=== PATIENT | female | born 1945 | race Caucasian/White ===

== ENCOUNTER → 2018-07-25 08:09 | Outpatient (CLI) | payer MEDICARE, SELFPAY ==
--- NOTE | 2018-07-25 08:12 | DI.MRI.S_ITS ---
PROCEDURE: MR CERVICAL SPINE WO CON INDICATIONS: Neck pain TECHNIQUE: Noncontrast sagittal T1 spin echo and T2 fast spin echo, sagittal STIR, foraminal oblique sagittal T2 fast spin echo, and axial gradient echo or T2 fast spin echo through the cervical spine. COMPARISON: None. FINDINGS: Image quality: Excellent. Alignment and Curvature: There is straightening of normal cervical lordosis. No spondylolisthesis is seen. Bone Marrow: There is no compression fracture. Vertebral body heights are preserved. Edema involving the inferior endplate of T1 and superior endplate of T2 is seen with significantly decreased intervertebral disc space at T1-2 level. Desiccation signals and degenerative endplate changes also noted throughout cervical spine more prominent at C5-6 and C6-7 levels. Spinal Cord: Visualized spinal cord has normal size and signal. No cerebellar tonsillar herniation. Paraspinous Soft Tissues: No paravertebral masses. Prevertebral soft tissues are normal in thickness. C2-C3: Normal appearance. C3-C4: Mild diffuse disc bulge is seen with mild central canal stenosis and left-sided neural foramina narrowing. C4-C5: There is a right paracentral disc herniation extending to right neural recess causing mild central canal stenosis and mild to moderate right-sided neuroforaminal narrowing. C5-C6: Broad-based, more right sided disc bulge is seen with mild to moderate central canal stenosis and right-sided neuroforaminal narrowing. C6-C7: There is broad-based disc bulge with mild central canal stenosis and mild bilateral neuroforaminal narrowing. C7-T1: Mild diffuse disc bulge is seen with no significant central canal stenosis or neuroforaminal narrowing. IMPRESSION: 1. Degenerative disc disease throughout cervical spine and visualized upper thoracic spine. Degenerative disc bulge at C3-4 through C7-T1 levels causing mild to moderate central canal stenosis and bilateral neuroforaminal narrowing as described above. 2. No acute compression fracture or traumatic spondylolisthesis. No abnormal cervical spinal cord signal. Dictated by: David Poe M.D. on 07/25/2018 at 10:27 Approved by: David Poe M.D. on 07/25/2018 at 10:37
--- NOTE | 2018-07-25 08:12 | DI.MRI.S_ITS ---
PROCEDURE: MR LUMBAR SPINE WO CON INDICATIONS: LOW BACK PAIN TECHNIQUE: Noncontrast sagittal T1 spin echo and T2 fast echo, sagittal STIR, axial T1 and T2 fast spin echo through the lumbar spine. In cases with scoliosis, additional coronal T2 fast spin echo may be performed. COMPARISON: None. FINDINGS: Image quality: Excellent. Alignment and Curvature: There is trace anterolisthesis of L2 on L3, L3 on L4, L4 on L5, L5 on S1. Bone Marrow: Marrow is of normal overall signal. Mild Schmorl's node is present along the superior endplate of L2 with mild adjacent reactive marrow change and a second focus with slightly increased marrow edema along the inferior endplate of T12. Degenerative reactive endplate changes are present at S1-S2. No acute vertebral body compression fractures. Spinal Cord: Conus medullaris terminates at the L2 level. Visualized cord demonstrates normal signal and size. Paraspinous Soft Tissues: No paravertebral masses. Discs: Mild desiccation is present throughout the lumbar spine, moderate at T12-L1. L1-L2: Mild disc bulge with minimal effacement of the spinal canal secondary to facet hypertrophy. Mild to moderate right and minimal left foraminal narrowing. L2-L3: Mild disc bulge with mild spinal stenosis. Mild bilateral foraminal narrowing, left greater than right the facet and ligamentum flavum hypertrophy. Minimal epidural lipomatosis. L3-L4: Mild disc bulge with moderate to severe spinal stenosis and an overall appearance of canal flattening. Moderate bilateral foraminal narrowing, right greater than left with facet and ligamentum flavum hypertrophy. Mild epidural lipomatosis. L4-L5: Mild disc post with mild spinal stenosis. Moderate left and mild to moderate right foraminal narrowing with facet and ligament flavum hypertrophy. Minimal epidural lipomatosis. L5-S1: Mild disc bulge without spinal stenosis. Minimal to mild left and minimal right foraminal narrowing with facet and ligamentum flavum hypertrophy. IMPRESSION: 1. Multilevel disc bulges. 2. Multilevel spinal stenosis most severe at L3-4 secondary to disc bulge with contributing effect of facet/ligamentum flavum arthropathy. Minimal to mild epidural lipomatosis is also noted. 3. Multilevel foraminal narrowing most prominent at L3-4 and L4-5 secondary to facet arthropathy. Dictated by: Lynne Gonzalez M.D. on 07/25/2018 at 10:30 Approved by: Lynne Gonzalez M.D. on 07/25/2018 at 11:02
--- NOTE | 2018-07-25 08:12 | DI.MRI.S_ITS ---
PROCEDURE: MR THORACIC SPINE WO CON INDICATIONS: Upper back pain TECHNIQUE: Noncontrast sagittal T1 spine echo and T2 fast spin echo, sagittal STIR, axial T1 and T2 fast spin echo through the thoracic spine. COMPARISON: [facility], MR, MR LUMBAR SPINE WO CON, 07/25/2018, 9:09. [facility], MR, MR CERVICAL SPINE WO CON, 07/25/2018, 8:28. Formerly [facility], CR, XR CERVICAL SPINE 2 OR 3 VIEWS, 07/24/2017, 14:54. [facility], CR, XR LUMBAR SPINE 2 OR 3 VIEWS, 04/12/2018, 11:03. FINDINGS: Image quality: Excellent. Alignment and Curvature: There is normal bony alignment. Bone Marrow: There is marrow edema in T1 and T2 vertebral bodies involving the inferior aspect of T1 and superior aspect of T2. There is no loss of vertebral body height in T1 or T2 vertebral bodies. Mild wedge deformity of L1 is noted. No acute vertebral body compression fractures. Spinal Cord: Visualized spinal cord is normal in size and signal. Paraspinous Soft Tissues: No paravertebral masses. Miscellaneous: Multilevel degenerative disc disease is present with disc space narrowing and posterior disc bulge involving C7-T1, T1-T2, T2-T3, T3-T4, T6-T7, T7-T8, T8-T9, T9-T10, T10-T11, T11-T12 and T12-L1. There is On axial images, there is mild central canal stenosis at T10-T11 and T12-L1. Neural foramina appear patent. IMPRESSION: 1. There is prominent marrow edema in T1 and T2 vertebral bodies without loss of vertebral body height, which involves the inferior endplate of T1 and superior endplate of T2, suggesting a discogenic process (Modic type 1). Less likely the finding could be related to trauma or impending compression fracture. 2. Mild loss of vertebral body height of L1, neck with chronic compression fracture. 3. Multilevel degenerative disc disease as described. 4. Mild central canal stenosis at T10-T11 and T12-L1. 5. No foraminal stenosis. Dictated by: Elma Richardson M.D. on 07/25/2018 at 10:55 Approved by: Elma Richardson M.D. on 07/25/2018 at 20:58
== END ==
PROVIDERS: PCP Physician Assistant Medical; Visit Provider Physical Medicine & Rehabilitation
DX: M50.31 Other cervical disc degeneration, high cervical region (principal); M48.02 Spinal stenosis, cervical region; M51.26 Other intervertebral disc displacement, lumbar region; M51.27 Other intervertebral disc displacement, lumbosacral region; M48.061 Spinal stenosis, lumbar region without neurogenic claudication; M48.07 Spinal stenosis, lumbosacral region; M51.34 Other intervertebral disc degeneration, thoracic region; M48.04 Spinal stenosis, thoracic region
CPT/HCPCS: 72141; 72146; 72148

== ENCOUNTER 2018-08-13 09:04 | Outpatient (CLI) | payer MEDICARE, SELFPAY ==
--- NOTE | 2018-08-13 09:05 | DI.RAD.S_ITS ---
PROCEDURE: PAIN C/T INTERLAMINAR INJECT INDICATIONS: SPINAL STENOSIS FINDINGS: Fluoroscopic spot filming was performed to verify placement of cervical spine at C6-C7 level. Appropriate location(s) of the needle tip(s) was confirmed by injection of iodinated contrast. IMPRESSION: Fluoroscopy for pain management. Dictated by: Elma Richardson M.D. on 08/13/2018 at 12:06 Approved by: Elma Richardson M.D. on 08/13/2018 at 12:07
[2018-08-13 09:11] VITALS: BP 160/72; PULSE 83; RESP 20; TEMP 36.4; O2SAT 96
--- NOTE | 2018-08-13 09:36 | PM.PROC.1 ---
Procedures Date/Time Date of procedure: 08/13/18 Time of procedure: 09:37 General Procedure description: PREOP DIAGNOSIS 1. CERVICAL STENOSIS, 2. CERVICAL HNP WITH UPPER EXTREMITY RADICULAR FEATURES, POST OP DIAGNOSIS 1. CERVICAL STENOSIS, 2. CERVICAL HNP WITH UPPER EXTREMITY RADICULAR FEATURES, PROCEDURES 1. FLUORSCOPICALLY GUIDED CONTRAST CONTROLLED INTERLAMINAR EPIDURAL STEROID INJECTION - C6/7 TL SHERRON PHYSICIAN: Weston Tavarez DO INDICATIONS [place] is referred by KIRK Linares for treatment of Cervical HNP with Upper Extremity Paresthesias. FINDINGS Cervical Stenosis due to disc deterioration and nerve root irritation and nerve root irritation DESCRIPTION OF PROCEDURE Fluoroscopically guided, contrast-controlled C6/7 translaminar epidural steroid injection with conscious sedation. Following denial of allergy and review of potential side effects and complications, including, but not necessarily limited to, infection, allergic reaction, local tissue breakdown, temporary as well as permanent nerve injury, stroke, paralysis, and possible , the patient indicated that patient understood and agreed to proceed. An informed consent document was signed by the patient, witnessed by a nurse, and placed in the patient's chart. Additionally, other treatment options including modalities, medications, and physical therapy were reviewed with the patient. After review of previous anaesthesic history and IV conscious sedation the patient was deemed safe to proceed with todays procedure with IV conscious sedation as ASA class II designation. Safety time-out was performed to confirm patient ID, procedure to be performed and site of procedure. IV sedation was accomplished with a combination of 2mg of Versed administered by the RN after DO order, titrated to patient comfort during the course of the procedure while the patient remained responsive to all verbal commands. In the prone position, following sterile prep and drape of the cervical region, the C6/7 translaminar space was identified fluoroscopically. The skin was anesthetized via a 25-gauge 1.5-inch needle with 1% lidocaine solution. At this point, a 25-gauge, 2.5-inch short bevel spinal needle was atraumatically introduced and advanced under fluoroscopic guidance into epidural space at the C6/7 translaminar space. Depth was confirmed on lateral view. Radiological data, including multiple fluoroscopic views of the cervical spine, reveal a spinal needle at the C6/7 translaminar space. Lateral views then show placement of the needle in the epidural space. Subsequent views show contrast material flowing superiorly and inferiorly in the epidural space. DSA fluoroscopy with live contrast injection, once again, confirmed no vascular or intrathecal uptake. At this point, using loss of resistance technique with saline and air, the epidural space was entered. Following negative aspiration, injection of approximately 1.5 cc of Isovue-200 with live fluoroscopy in the AP view confirmed epidural flow in the epidural space without vascular or intrathecal uptake observed. Subsequently, a test dose of 1 cc of 1% lidocaine solution was injected and patient was observed for two minutes without signs or symptoms of complications, including abdominal pain, shortness of breath, bilateral upper or lower extremity weakness, nausea and vomiting, prior to steroid injection. At this point, 3 cc or 30 mg of dexamethasone was then injected without incident. The patient tolerated the procedure well without signs or symptoms of complications prior to being transferred to the recovery area for further monitoring, The patient was then transferred to the recovery area where they were observed for an appropriate period of time after the injection. The patient reported a VAS score of 6 prior to the procedure and a post-procedure VAS of 0. Total Fluoroscopy Time: 37.0 seconds Total Conscious Time: 24min POST OP INSTRUCTIONS The patient was provided a Pain Log to continue to record their response to the target-specific procedure prior to follow-up visit with the referring provider. Additionally, specific post-injection care instructions and a contact number to our office were provided if concerns arise regarding possible complications associated with the procedure are suspected. Weston Tavarez, Complications: none
[2018-08-13 09:45] VITALS: BP 156/85; PULSE 88; O2SAT 100
[2018-08-13] MEDS: MIDAZOLAM 5 MG/5 ML VIAL IV (09:45)
[2018-08-13 09:50] VITALS: BP 152/86; PULSE 89; RESP 15; O2SAT 100
[2018-08-13 09:55] VITALS: BP 165/65; PULSE 87; RESP 16; O2SAT 98
--- NOTE | 2018-08-13 10:11 | PC.NURSE ---
pt tolerated procedure well. Able to get off table with standby assist, pt awake and alert, transferred to pre procedure room for continued monitoring by Gabriela GUTIERREZ.
[2018-08-13 10:12] VITALS: BP 147/77; PULSE 82; RESP 18; O2SAT 96
[2018-08-13] MEDS: DEXAMETHASONE 10 MG/ML VIAL 30 MG INJ (10:13)
[2018-08-13] MEDS: LIDOCAINE 1% 20 ML INJ 5 ML INJ (10:13)
[2018-08-13] MEDS: IOPAMIDOL 15 ML VIAL 3 ML INJ (10:13)
--- NOTE | 2018-08-13 10:13 | PC.NURSE ---
ACCEPTED CARE OF PT IN POST PROC AREA IN STABLE CONDITION
[2018-08-13 10:17] VITALS: BP 134/82; PULSE 85; RESP 16; O2SAT 97
--- NOTE | 2018-08-14 15:57 | PC.NURSE ---
FOLLOW UP CALL MADE, LEFT MESSAGE WITH CLINIC NUMBER FOR ANY QUESTIONS/CONCERNS.
== END 2018-08-13 10:29 | disposition home or self-care (01) ==
LOC: RAD 09:05
PROVIDERS: PCP Physician Assistant Medical; Visit Provider Physical Medicine & Rehabilitation
DX: M50.123 Cervical disc disorder at C6-C7 level with radiculopathy (principal); M48.02 Spinal stenosis, cervical region
CPT/HCPCS: 62321; 99152; J1100; J2250

== ENCOUNTER → 2019-05-01 13:38 | Outpatient (CLI) | payer MEDICARE, SELFPAY | PROVIDERS: PCP Physician Assistant Medical; Visit Provider Physical Medicine & Rehabilitation | DX: M48.02 Spinal stenosis, cervical region (principal); M47.814 Spondylosis without myelopathy or radiculopathy, thoracic region; M48.10 Ankylosing hyperostosis [Forestier], site unspecified; G56.00 Carpal tunnel syndrome, unspecified upper limb; M50.20 Other cervical disc displacement, unspecified cervical region; M43.16 Spondylolisthesis, lumbar region | CPT/HCPCS: 95885; 95886; 95911 ==

== ENCOUNTER 2019-05-29 09:38 | Outpatient (CLI) | payer MEDICARE, SELFPAY ==
[2019-05-29] VITALS (8 sets, daily range): BP systolic 106–177; BP diastolic 63–93; PULSE 70–93; RESP 16–20; TEMP 36.4; O2SAT 96–98
--- NOTE | 2019-05-29 10:01 | DI.RAD.S_ITS ---
PROCEDURE: PAIN C/T INTERLAMINAR INJECT INDICATIONS: SPINAL STENOSIS FINDINGS: Fluoroscopic spot filming was performed to verify placement of spinal needles at the C6-C7 level(s), as labeled on the films. Appropriate location(s) of the needle tip(s) was confirmed by injection of iodinated contrast. IMPRESSION: Fluoroscopy for pain management. Dictated by: Elma Richardson M.D. on 05/29/2019 at 11:53 Approved by: Elma Richardson M.D. on 05/29/2019 at 11:54
[2019-05-29] MEDS: MIDAZOLAM 5 MG/5 ML VIAL IV (10:37)
[2019-05-29] MEDS: fentaNYL 100 MCG/2 ML INJ 50 MCG IV (10:39)
[2019-05-29] MEDS: IOPAMIDOL 15 ML VIAL 3 ML INJ (10:44)
[2019-05-29] MEDS: DEXAMETHASONE 10 MG/ML VIAL 30 MG INJ (10:44)
[2019-05-29] MEDS: LIDOCAINE 1% 20 ML 5 ML INJ (10:44)
--- NOTE | 2019-05-29 10:50 | PC.NURSE ---
ASSISTING PT OFF TABLE AND TRANSPORTING TO POST PROC AREA IN STABLE CONDITION.
--- NOTE | 2019-05-29 10:58 | P.PCN_ITS ---
Procedures Date/Time Date of procedure: 05/29/19 Time of procedure: 10:58 General Procedure description: PREOP DIAGNOSIS 1. CERVICAL STENOSIS, 2. CERVICAL HNP WITH UPPER EXTREMITY RADICULAR FEATURES, POST OP DIAGNOSIS 1. CERVICAL STENOSIS, 2. CERVICAL HNP WITH UPPER EXTREMITY RADICULAR FEATURES, PROCEDURES 1. FLUORSCOPICALLY GUIDED CONTRAST CONTROLLED INTERLAMINAR EPIDURAL STEROID INJECTION - C6/7 TL SHERRON PHYSICIAN: DO JILL Pastrana [place] is referred by KIRK Linares for treatment of Cervical HNP with Upper Extremity Paresthesias. FINDINGS Cervical Stenosis due to disc deterioration and nerve root irritation and nerve root irritation DESCRIPTION OF PROCEDURE Fluoroscopically guided, contrast-controlled C6/7 translaminar epidural steroid injection with conscious sedation. Following review of allergy and review of potential side effects and complications, including, but not necessarily limited to, infection, allergic reaction, local tissue breakdown, temporary as well as permanent nerve injury, stroke, paralysis, and possible , the patient indicated that patient understood and agreed to proceed. An informed consent document was signed by the patient, witnessed by a nurse, and placed in the patient's chart. Additionally, other treatment options including modalities, medications, and physical therapy were reviewed with the patient. After review of previous anaesthesic history and IV conscious sedation the patient was deemed safe to proceed with todays procedure with IV conscious sedation as ASA class II designation. Safety time-out was performed to confirm patient ID, procedure to be performed and site of procedure. IV sedation was accomplished with a combination of 3mg of Versed and 50mcg of Fentanyl administered by the RN after DO order, titrated to patient comfort during the course of the procedure while the patient remained responsive to all verbal commands. In the prone position, following sterile prep and drape of the cervical region, the C6/7 translaminar space was identified fluoroscopically. The skin was anesthetized via a 25-gauge 1.5-inch needle with 1% lidocaine solution. At this point, a 25-gauge, 2.5-inch short bevel spinal needle was atraumatically introduced and advanced under fluoroscopic guidance into epidural space at the C6/7 translaminar space. Depth was confirmed on lateral view. Radiological data, including multiple fluoroscopic views of the cervical spine, reveal a spinal needle at the C6/7 translaminar space. Lateral views then show placement of the needle in the epidural space. Subsequent views show contrast material flowing superiorly and inferiorly in the epidural space. DSA fluoroscopy with live contrast injection, once again, confirmed no vascular or intrathecal uptake. At this point, using loss of resistance technique with saline and air, the epidural space was entered. Following negative aspiration, injection of approximately 1.5 cc of Isovue-200 with live fluoroscopy in the AP view confirmed epidural flow in the epidural space without vascular or intrathecal uptake observed. Subsequently, a test dose of 1 cc of 1% lidocaine solution was injected and patient was observed for two minutes without signs or symptoms of complications, including abdominal pain, shortness of breath, bilateral upper or lower extremity weakness, nausea and vomiting, prior to steroid injection. At this point, 3cc or 30mg of dexamethasone was then injected without incident. The patient tolerated the procedure well without signs or symptoms of complications prior to being transferred to the recovery area for further m onitoring, The patient was then transferred to the recovery area where they were observed for an appropriate period of time after the injection. The patient reported a VAS score of 6 prior to the procedure and a post-procedure VAS of 0. Total Fluoroscopy Time: 37.0 seconds Total Conscious Time: 24min POST OP INSTRUCTIONS The patient was provided a Pain Log to continue to record their response to the target-specific procedure prior to follow-up visit with the referring provider. Additionally, specific post-injection care instructions and a contact number to our office were provided if concerns arise regarding possible complications associated with the procedure are suspected. Weston Tavarez DO Complications: none
== END 2019-05-29 11:23 | disposition home or self-care (01) ==
LOC: RAD 09:39
PROVIDERS: PCP Physician Assistant Medical; Visit Provider Physical Medicine & Rehabilitation
DX: M48.02 Spinal stenosis, cervical region (principal); M50.123 Cervical disc disorder at C6-C7 level with radiculopathy
CPT/HCPCS: 62321; 99152; J1100; J2250; J3010